=== PATIENT | female | born 2005 | race Caucasian/White ===

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

== ENCOUNTER 2023-02-05 14:14 | Outpatient (CLI) | payer BC | END 2023-02-05 14:15 | disposition home or self-care (01) | LOC: SCSMRI 14:14 | PROVIDERS: ATTEND Orthopaedic Surgery | DX: S83.105A Unspecified dislocation of left knee, initial encounter (principal); S83.282A Other tear of lateral meniscus, current injury, left knee, initial encounter; S70.12XA Contusion of left thigh, initial encounter; S80.02XA Contusion of left knee, initial encounter ==

== ENCOUNTER 2023-03-21 13:09 | Outpatient (CLI) | payer BC ==
[2023-03-21 14:41] LABS: BHCG - Serum Negative (NEGATIVE); Pregs Control Background? CLEAR/WHITE (CLR/WHITE); Pregs Control Bar Appear? YES (CONTROL BAR)
== END 2023-03-21 13:10 | disposition home or self-care (01) ==
LOC: LABBT 13:09
PROVIDERS: ATTEND Orthopaedic Surgery
DX: Z01.812 Encounter for preprocedural laboratory examination (principal); M25.362 Other instability, left knee
CPT/HCPCS: 84703

== ENCOUNTER 2023-03-28 05:48 | Observation (INO) | payer BC ==
[2023-03-21 11:18] VITALS: BMI 28.4
[2023-03-28] MEDS ORDERED: Bupivacaine PF 0.5% 30 ML VIAL ONE ×2 (06:22→07:26)
[2023-03-28] MEDS ORDERED: Lidocaine 2% PF 5 ML VIAL ONE (06:22)
[2023-03-28] MEDS ORDERED: Dexmedetomidine 200 MCG/2 ML VIAL ONE (06:22)
[2023-03-28] MEDS ORDERED: PROPOFOL 20 ML ONE ×5 (06:23→09:31)
[2023-03-28] MEDS ORDERED: fentaNYL 50 mcg/mL 1 mL Vial ONE ×4 (06:24→09:36)
[2023-03-28] MEDS ORDERED: Midazolam HCl 2 mg/2 ml Vial ONE (06:25)
[2023-03-28] MEDS ORDERED: Bupivacaine HCl 0.5%/Epinephrine 1:200,000/PF 30 ml Vial ONE (06:45)
[2023-03-28] MEDS ORDERED: Scopolamine 1 mg/72 hour Patch ONE (06:54)
[2023-03-28] MEDS ORDERED: Sodium Chloride 0.9% 100 ML ONE ×3 (07:26→15:36)
[2023-03-28] MEDS ORDERED: CEFAZOLIN 2 GM VIAL ONE (07:26)
[2023-03-28] MEDS ORDERED: Ondansetron PF 4 MG/2 ML Vial ONE ×2 (08:00→11:08)
[2023-03-28] MEDS ORDERED: Dexamethasone 4 mg/ml Vial ONE (08:00)
[2023-03-28] MEDS ORDERED: HYDROcodone/Acetaminophen 5/325 mg Tablet ONE (11:09)
[2023-03-28] MEDS ORDERED: Morphine 4 MG/ML VIAL ONE (11:13)
[2023-03-28] MEDS ORDERED: oxyCODONE 5 MG TAB ONE ×2 (13:14→14:12)
[2023-03-28] MEDS ORDERED: CEFAZOLIN 1 GM VIAL ONE (15:34)
[2023-03-28] MEDS ORDERED: CeleCOXIB 100 MG CAP ONE (15:36)
[2023-03-28] MEDS ORDERED: HYDROcodone/Acetaminophen 7.5/325 mg Tablet PO PRN (15:49)
[2023-03-28] MEDS ORDERED: Ondansetron PF 4 MG/2 ML Vial IVP PRN (15:52)
[2023-03-28] MEDS ORDERED: Ondansetron ODT 4 MG TAB PO PRN (15:53)
[2023-03-28] MEDS ORDERED: CeleCOXIB 100 MG CAP PO SCH (16:00)
[2023-03-28] MEDS: HYDROcodone/Acetaminophen 7.5/325 mg Tablet PO PRN (21:04)
[2023-03-29] MEDS: CEFAZOLIN 1 GM in Sodium Chloride 0.9% 100 ML IVPB SCH ×2 (01:56→08:18)
[2023-03-29] MEDS: HYDROcodone/Acetaminophen 7.5/325 mg Tablet PO PRN (08:13)
[2023-03-29] MEDS ORDERED: CeleCOXIB 100 MG CAP PO SCH (09:00)
[2023-03-29 12:46] VITALS: BP 132/76; TEMP 98.5
== END 2023-03-29 14:13 | disposition home or self-care (01) ==
LOC: SDC 05:48 → MSONC 15:42
PROVIDERS: ADMIT Orthopaedic Surgery; ATTEND Orthopaedic Surgery
PROC: 0SQD4ZZ Repair Left Knee Joint, Percutaneous Endoscopic Approach (ICD-10-PCS; principal; 2023-03-29)
PROC: 0SRD0NZ Replacement of Left Knee Joint with Patellofemoral Synthetic Substitute, Open Approach (ICD-10-PCS; 2023-03-29)
DX: M22.02 Recurrent dislocation of patella, left knee (principal); M23.252 Derangement of posterior horn of lateral meniscus due to old tear or injury, left knee; M25.362 Other instability, left knee
CPT/HCPCS: C1713; J0690; J1100; J2001; J2250; J2270; J2405; J2704; J3010; J3490; S0020